=== PATIENT | male | born 1985 | race Caucasian/White ===

== ENCOUNTER 2016-07-19 13:56 | Emergency (ER) | payer MEDICAID ==
[~2016-07-19] VITALS: Ht 180.3 cm; Wt 72.6 kg
[~2016-07-19 13:56] MED LIST: ADV250INH INH; ALBU17IN2 INH; COLA100C2; DEPA250T2 PO; DEPA500T2 PO; NEXI20CA; PROP60CA; PROV90AE INH; TEGR200T; TRAZ50TA; TRAZ50TA4 PO
[2016-07-19 16:43] LABS: BASO % 0.9 % (0.0-1.0); EOS # 0.2 K/mm3 (0.0-0.50); EOS % 4.1 % (0.0-3.0); LARGE UNSTAINED CELL # 0.1 K/mm3 (0.0-0.4); LARGE UNSTAINED CELL % 2.3 % (0.0-4.0); LYMPH # 1.9 K/mm3 (1.5-4.5); LYMPH % 34.6 % (24.0-44.0); MEAN CORPUSCULAR HEMOGLOBIN 30.3 pg (27.0-33.0); MONO # 0.4 K/mm3 (0.0-0.8); MONO % 8.3 % (0.0-5.0); NEUTROPHILS # 2.6 K/mm3 (1.8-7.7); NEUTROPHILS % 49.8 % (36.0-66.0); PLATELET COUNT, AUTOMATED 197 k/mm3 (150-450); RED CELL DISTRIBUTION WIDTH 11.9 % (11.5-14.5); WHITE BLOOD COUNT 5.3 K/mm3 (4.0-10.0)
[2016-07-19 16:59] LABS: ALBUMIN 4.4 GM/DL (3.2-5.2); ALBUMIN/GLOBULIN RATIO 1.33 (1.00-1.93); ALKALINE PHOSPHATASE 72 U/L (45-117); ALT/SGPT 18 U/L (12-78); ANION GAP 8 MEQ/L (8-16); AST/SGOT 18 U/L (15-37); BILIRUBIN,DIRECT 0.3 MG/DL (0.0-0.2); BILIRUBIN,TOTAL 1.4 MG/DL (0.2-1.0); BLOOD UREA NITROGEN 17 MG/DL (7-18); CARBON DIOXIDE LEVEL 29 MEQ/L (21-32); CHLORIDE LEVEL 103 MEQ/L (98-107); GLOMERULAR FILTRATION RATE > 60.0 (>60); GLUCOSE, FASTING 76 MG/DL (70-105); POTASSIUM SERUM 4.1 MEQ/L (3.5-5.1); SODIUM LEVEL 140 MEQ/L (136-145); TOTAL PROTEIN 7.7 GM/DL (6.4-8.2)
[2016-07-19 17:16] VITALS: BP 145/95
[2016-07-19] MEDS ORDERED: ALBU17IN INH (17:20)
[2016-07-19] MEDS ORDERED: ADV250INH INH (17:20)
[2016-07-19] MEDS ORDERED: DEPA250T2 PO (17:20)
== END 2016-07-19 17:33 | disposition home or self-care (01) ==
LOC: M ED 15:31
DX: Z76.0 Encounter for issue of repeat prescription (principal); G40.909 Epilepsy, unspecified, not intractable, without status epilepticus; J45.909 Unspecified asthma, uncomplicated; Z88.8 Allergy status to other drugs, medicaments and biological substances; Z91.030 Bee allergy status; Z79.899 Other long term (current) drug therapy

== ENCOUNTER 2016-08-07 17:43 | Emergency (ER) | payer MEDICAID ==
[~2016-08-07] VITALS: Ht 180.3 cm; Wt 74.8 kg
[~2016-08-07 17:43] MED LIST changes: +ALBU17IN INH
[2016-08-07] MEDS ORDERED: NAPROXEN 250 MG TAB PO ONE (19:30)
[2016-08-07] MEDS ORDERED: DEPA250T32 PO (20:21)
[2016-08-07] MEDS ORDERED: NAPR500T PO (20:21)
[2016-08-07] MEDS ORDERED: ALBU17IN INH (20:21)
[2016-08-07 20:22] VITALS: BP 148/88
--- NOTE | 2016-08-08 08:23 | REP ---
Left ankle four views : There is no fracture or dislocation. Mineralization and joint spaces are normal. There are no calcifications or foreign bodies. Impression: Negative left ankle . Signed by Shady Colorado MD 08/08/2016 08:14 A
== END 2016-08-07 20:41 | disposition home or self-care (01) ==
LOC: M ED 19:38
DX: S93.412A Sprain of calcaneofibular ligament of left ankle, initial encounter (principal); X50.9XXA Other and unspecified overexertion or strenuous movements or postures, initial encounter; Y92.410 Unspecified street and highway as the place of occurrence of the external cause; Y93.01 Activity, walking, marching and hiking; Y99.8 Other external cause status; Z79.899 Other long term (current) drug therapy; J45.909 Unspecified asthma, uncomplicated; F41.9 Anxiety disorder, unspecified; F32.9 Major depressive disorder, single episode, unspecified; R56.9 Unspecified convulsions

== ENCOUNTER 2016-08-16 14:39 | Emergency (ER) | payer MEDICAID ==
[~2016-08-16] VITALS: Ht 180.3 cm; Wt 74.8 kg
[~2016-08-16 14:39] MED LIST changes: +DEPA250T32 PO; +NAPR500T PO
[2016-08-16 14:40] VITALS: BP 168/93
[2016-08-16 17:01] LABS: BASO % 0.9 % (0.0-1.0); EOS # 0.1 K/mm3 (0.0-0.50); EOS % 1.6 % (0.0-3.0); LARGE UNSTAINED CELL # 0.1 K/mm3 (0.0-0.4); LARGE UNSTAINED CELL % 2.3 % (0.0-4.0); LYMPH # 0.8 K/mm3 (1.5-4.5); LYMPH % 16.7 % (24.0-44.0); MEAN CORPUSCULAR HGB CONC 33.2 g/dl (32.0-36.5); MEAN CORPUSCULAR VOLUME 90.5 fl (80.0-96.0); MONO # 0.5 K/mm3 (0.0-0.8); MONO % 10.7 % (0.0-5.0); NEUTROPHILS # 3.1 K/mm3 (1.8-7.7); NEUTROPHILS % 67.9 % (36.0-66.0); PLATELET COUNT, AUTOMATED 165 k/mm3 (150-450); RED CELL DISTRIBUTION WIDTH 11.8 % (11.5-14.5); WHITE BLOOD COUNT 4.5 K/mm3 (4.0-10.0)
[2016-08-16 17:06] LABS: ANION GAP 7 MEQ/L (8-16); BLOOD UREA NITROGEN 14 MG/DL (7-18); CALCIUM LEVEL 9.1 MG/DL (8.5-10.1); CARBON DIOXIDE LEVEL 29 MEQ/L (21-32); CHLORIDE LEVEL 105 MEQ/L (98-107); CREATININE FOR GFR 0.95 MG/DL (0.70-1.30); GLOMERULAR FILTRATION RATE > 60.0 (>60); GLUCOSE, FASTING 101 MG/DL (70-105); POTASSIUM SERUM 4.6 MEQ/L (3.5-5.1); SODIUM LEVEL 141 MEQ/L (136-145)
--- NOTE | 2016-08-16 17:08 | REP ---
CHEST, TWO VIEWS: There is no evidence of acute infiltrate. No pleural effusion is seen. The heart is normal in size. The mediastinal silhouette is unremarkable. The visualized osseous structures are intact. IMPRESSION: No acute pulmonary disease. Signed by Shady Rainey MD 08/17/2016 03:19 P
--- NOTE | 2016-08-18 16:29 | ECGEPIP ---
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
== END 2016-08-16 17:30 | disposition home or self-care (01) ==
LOC: M ED 16:34
DX: R07.9 Chest pain, unspecified (principal); J45.909 Unspecified asthma, uncomplicated; Z79.899 Other long term (current) drug therapy; Z91.030 Bee allergy status; Z88.8 Allergy status to other drugs, medicaments and biological substances

== ENCOUNTER 2016-08-18 21:25 | Emergency (ER) | payer MEDICAID ==
[~2016-08-18] VITALS: Ht 180.3 cm; Wt 72.3 kg
[2016-08-18] MEDS ORDERED: VALPROATE SOD INJ 500 MG in D5W 50 ML IV ONE (21:45)
[2016-08-18 21:50] LABS: BASO % 0.7 % (0.0-1.0); EOS # 0.1 K/mm3 (0.0-0.50); EOS % 1.5 % (0.0-3.0); LARGE UNSTAINED CELL # 0.1 K/mm3 (0.0-0.4); LARGE UNSTAINED CELL % 3.2 % (0.0-4.0); LYMPH # 1.3 K/mm3 (1.5-4.5); LYMPH % 32.8 % (24.0-44.0); MEAN CORPUSCULAR HGB CONC 34.2 g/dl (32.0-36.5); MEAN CORPUSCULAR VOLUME 87.9 fl (80.0-96.0); MONO # 0.4 K/mm3 (0.0-0.8); MONO % 10.1 % (0.0-5.0); NEUTROPHILS # 2.1 K/mm3 (1.8-7.7); NEUTROPHILS % 51.6 % (36.0-66.0); PLATELET COUNT, AUTOMATED 167 k/mm3 (150-450); RED CELL DISTRIBUTION WIDTH 11.8 % (11.5-14.5)
[2016-08-18 22:02] LABS: INR 1.07
[2016-08-18 22:07] LABS: ANION GAP 7 MEQ/L (8-16); BLOOD UREA NITROGEN 16 MG/DL (7-18); CALCIUM LEVEL 8.7 MG/DL (8.5-10.1); CARBON DIOXIDE LEVEL 28 MEQ/L (21-32); CHLORIDE LEVEL 106 MEQ/L (98-107); CREATININE FOR GFR 0.96 MG/DL (0.70-1.30); GLOMERULAR FILTRATION RATE > 60.0 (>60); GLUCOSE, FASTING 124 MG/DL (70-105); POTASSIUM SERUM 3.4 MEQ/L (3.5-5.1); SODIUM LEVEL 141 MEQ/L (136-145)
--- NOTE | 2016-08-18 22:50 | REPUSA ---
CLINICAL HISTORY: CVA. TECHNIQUE: Multiple axial brain CT scan sections were obtained from base to vertex without contrast a dministration. COMMENTS: Prior studies are not available for comparison. The study shows normal configuration of sella turcica. There are no intra or extra-axial collections. There is no mass effect or midline shift. There is no evidence of hematoma formation. No hydrocephal us is present. No abnormal calcifications are noted. No significant abnormalities are seen either in the posterior fossa or supratentorial compartment. There is mucosal thickening and partial opacification involving bilateral ethmoid air cells and right sphenoid sinuses consistent with chronic sinusitis. IMPRESSION: Sinusitis as above. No evidence of acute intracranial pathology. Thank you for your kind referral of this patient.
[2016-08-18] MEDS ORDERED: DIVALPROEX 250 MG TAB PO ONE (23:45)
[2016-08-18] MEDS ORDERED: DEPA250T32 PO (23:47)
[2016-08-18] MEDS ORDERED: DOXY-278 PO (23:49)
[2016-08-18 23:53] VITALS: BP 126/69
[2016-08-19] MEDS ORDERED: DOXYCYCLINE HYCLATE 100 MG TAB PO ONE
--- NOTE | 2016-08-19 09:23 | ECGEPIP ---
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
--- NOTE | 2016-08-19 09:31 | REP ---
REASON: CVA COMPARISON: 08/16/2016 FINDINGS: The technique utilized in obtaining the radiograph has magnified the cardiac silhouette and accentuated the interstitial markings. The superior mediastinal structures are midline. The cardiac silhouette is unremarkable in size, shape, and position. The diaphragmatic surfaces of the lungs are regular, and the costophrenic angles are clear. The pulmonary hernandez are clear. The imaged osseous structures are intact. IMPRESSION: There is no acute cardiopulmonary disease. Signed by Scar Ivan DO 08/19/2016 09:40 A
== END 2016-08-19 | disposition home or self-care (01) ==
LOC: EDBD 21:25 → M ED 22:16
DX: R20.9 Unspecified disturbances of skin sensation (principal); Z91.14 Patient's other noncompliance with medication regimen; R51 Headache; J01.90 Acute sinusitis, unspecified; F17.200 Nicotine dependence, unspecified, uncomplicated; R56.9 Unspecified convulsions; Z86.73 Personal history of transient ischemic attack (TIA), and cerebral infarction without residual deficits; J45.909 Unspecified asthma, uncomplicated; F41.9 Anxiety disorder, unspecified; F32.9 Major depressive disorder, single episode, unspecified; Z79.899 Other long term (current) drug therapy; Z91.030 Bee allergy status; Z88.8 Allergy status to other drugs, medicaments and biological substances

== ENCOUNTER 2016-08-22 21:00 | Emergency (ER) | payer MEDICAID ==
[~2016-08-22] VITALS: Ht 180.3 cm; Wt 74.8 kg
[2016-08-22 21:00] VITALS: BP 133/74
[~2016-08-22 21:00] MED LIST changes: +DOXY-278 PO
== END 2016-08-22 23:26 | disposition home or self-care (01) ==
LOC: M ED 22:08
DX: F43.9 Reaction to severe stress, unspecified (principal); R42 Dizziness and giddiness; R56.9 Unspecified convulsions; F32.9 Major depressive disorder, single episode, unspecified; F41.9 Anxiety disorder, unspecified; J45.909 Unspecified asthma, uncomplicated; F17.210 Nicotine dependence, cigarettes, uncomplicated; Z88.8 Allergy status to other drugs, medicaments and biological substances; Z91.030 Bee allergy status; Z79.899 Other long term (current) drug therapy

== ENCOUNTER 2016-08-26 15:14 | Emergency (ER) | payer MEDICAID ==
[~2016-08-26] VITALS: Ht 180.3 cm; Wt 67.1 kg
--- NOTE | 2016-08-26 16:39 | REP ---
CT of the cervical spine: Axial images are acquired with helical scanning in the reformatted in sagittal and coronal projections. The skull base, C1-C2 are unremarkable. Vertebral body heights, interspacing alignment are normal. The prevertebral soft tissues are normal. The facets are normally aligned. There are no posterior element fractures. Impression: There is no fracture or listhesis. Signed by Shady Colorado MD 08/26/2016 04:30 P
--- NOTE | 2016-08-26 16:50 | REP ---
Thoracic spine three views: Vertebral body heights, interspacing alignment are normal. The pedicles are unremarkable. Mineralization is normal. Impression: Negative thoracic spine. Signed by Shady Colorado MD 08/26/2016 04:42 P
--- NOTE | 2016-08-26 16:51 | REP ---
Lumbar spine five views: There are no comparisons. Vertebral body heights, interspacing alignment are normal. There is no spondylolysis or spondylolisthesis. The pedicles, facets and sacroiliac articulations are unremarkable. Impression: Negative lumbar spine. Signed by Shady Colorado MD 08/26/2016 04:44 P
[2016-08-26 17:25] VITALS: BP 134/80
--- NOTE | 2016-08-27 08:12 | REP ---
CT of the brain without IV contrast: Comparisons are 08/18/2016 and the 06/2008. There is no subdural or epidural hematoma. There is no edema, mass effect or midline shift. Cortical stripe is unremarkable. Ventricles are normal size and midline. There is evidence for ethmoid sinusitis that has improved from the 08/18/2016 study. Impression: No subdural or epidural hematoma. No hemorrhage, acute infarct or mass. The ethmoid sinusitis has improved from the prior study. Signed by Shady Colorado MD 08/27/2016 08:04 A
== END 2016-08-26 17:30 | disposition home or self-care (01) ==
LOC: M ED 16:05
DX: S00.03XA Contusion of scalp, initial encounter (principal); S20.229A Contusion of unspecified back wall of thorax, initial encounter; W09.0XXA Fall on or from playground slide, initial encounter; Y92.830 Public park as the place of occurrence of the external cause; Y93.89 Activity, other specified; Y99.8 Other external cause status; Z91.030 Bee allergy status; Z88.8 Allergy status to other drugs, medicaments and biological substances; Z79.899 Other long term (current) drug therapy; Z86.73 Personal history of transient ischemic attack (TIA), and cerebral infarction without residual deficits; J45.909 Unspecified asthma, uncomplicated; F41.9 Anxiety disorder, unspecified; F32.9 Major depressive disorder, single episode, unspecified

== ENCOUNTER 2018-12-01 01:40 | Emergency (ER) | payer MEDICAID, OTHER ==
[~2018-12-01] VITALS: Ht 180.3 cm; Wt 75.0 kg
[~2018-12-01 01:40] MED LIST changes: -DOXY-278 PO; +DOXY-350 PO; +NAPR-837 PO; -NAPR500T PO; +TRAZ-252 PO; -TRAZ50TA4 PO
[2018-12-01 01:41] VITALS: BP 125/81
== END 2018-12-01 03:13 | disposition home or self-care (01) ==
LOC: M ED 01:40
DX: Z59.0 Homelessness (principal); J45.909 Unspecified asthma, uncomplicated; G40.909 Epilepsy, unspecified, not intractable, without status epilepticus; Z79.899 Other long term (current) drug therapy; Z88.8 Allergy status to other drugs, medicaments and biological substances; F17.220 Nicotine dependence, chewing tobacco, uncomplicated